=== PATIENT | male | born 1980 | race Caucasian/White ===

== ENCOUNTER 2017-10-31 21:08 | Emergency (ER) | payer MEDICAID ==
[~2017-10-31] VITALS: Ht 152.4 cm; Wt 82.6 kg
[2017-10-31 21:16] VITALS: Ht 152.4 cm; Wt 82.6 kg
[2017-11-01 00:36] VITALS: BP 129/86
== END 2017-11-01 00:36 | disposition home or self-care (01) ==
LOC: ED 21:08
DX: J45.901 Unspecified asthma with (acute) exacerbation (principal)
CPT/HCPCS: 82962; J7613; J7644